=== PATIENT | male | born 1980 | race African-American/Black ===

== ENCOUNTER 2016-07-19 06:16 | Emergency (ER) | payer MEDICARE ==
[~2016-07-19] VITALS: Ht 185.4 cm; Wt 95.0 kg
[~2016-07-19 06:16] MED LIST: ERYT.5%O EACH EYE; TYLE3; Z.0.NO CURRENT MEDS
[2016-07-19 06:18] VITALS: BP 149/85; PULSE 71; RESP 16; TEMP 98; O2SAT 99
[2016-07-19] MEDS ORDERED: SODIUM CHLORIDE 0.9% FLUSH 5 ML FLUSH IVF PRN (07:15)
--- NOTE | 2016-07-19 07:18 | PD ---
HPI Chief Complaint: Abdominal Pain Time Seen by Provider: 07:10 Travel History International Travel<30 days: No Contact w/Intl Traveler<30days: No Traveled to known affect area: No History of Present Illness HPI This patient complains of abdominal pain. Location is epigastrium. Severity is mild to moderate. It is intermittent over 3 days. There is no vomiting or fever. No lower quadrant pain. Denies alcohol or drug abuse. Denies any specific medical problem. 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 No alleviating factors. PFSH Past Medical History Medical History: Denies Significant Hx Diminished Hearing: No Integumentary: Yes (PSORIASIS) Immunizations Current: Yes Tetanus Vaccination: > 5 Years Influenza Vaccination: Yes Past Surgical History Surgical History: No Previous Surgery Oral Surgery: Yes (6 DAYS AGO) Tonsillectomy: Yes (10 YRS AGO) Social History Alcohol Use: Yes (occassional) Tobacco Use: No Substance Use: No Allergies-Medications (Allergen,Severity, Reaction): Coded Allergies: Iodine (Verified Allergy, Severe, SWELLING, 07/19/16) Oily Fish (Verified Allergy, Severe, HIVES, 07/19/16) Penicillin (Verified Allergy, Unknown, Swelling, 07/19/16) Reported Meds & Prescriptions Reported Meds & Active Scripts Active Ilotycin (Erythromycin) 3.5 Gm Oint 1 Dose EACH EYE QID Reported Tylenol #3 (Acetaminophen/Codeine Phosphate) 300 Mg/30 Mg Tab No Current Meds (Miscellaneous Medication) Misc No Current Meds (Miscellaneous Medication) Misc Review of Systems General / Constitutional: No: Fever Eyes: No: Visual changes HENT: Positive: Headaches Cardiovascular: No: Chest Pain or Discomfort Respiratory: No: Shortness of Breath Gastrointestinal: Positive: Abdominal Pain Genitourinary: No: Dysuria Musculoskeletal: No: Pain Skin: No Rash Neurologic: Positive: Headache, No: Weakness Psychiatric: No: Depression Endocrine: No: Polydipsia Hematologic/Lymphatic: No: Easy Bruising Physical Exam Narrative GENERAL: Well-nourished, well-developed patient in no apparent distress. SKIN: Warm and dry. HEAD: Atraumatic. Normocephalic. EYES: Pupils equal and round. No scleral icterus. No injection or drainage. ENT: No nasal bleeding or discharge. Mucous membranes pink and moist. NECK: Trachea midline. No JVD. CARDIOVASCULAR: Regular rate and rhythm. No murmur appreciated. RESPIRATORY: No accessory muscle use. Clear to auscultation. Breath sounds equal bilaterally. GASTROINTESTINAL: Abdomen soft, non-tender, nondistended. Hepatic and splenic margins not palpable. MUSCULOSKELETAL: No obvious deformities. No clubbing. No cyanosis. No edema. NEUROLOGICAL: Awake and alert. No obvious cranial nerve deficits. Motor grossly within normal limits. Normal speech. PSYCHIATRIC: Appropriate mood and affect; insight and judgment normal. Data Data Last Documented VS Vital Signs Date Time Temp Pulse Resp B/P Pulse Ox O2 Delivery O2 Flow Rate FiO2 07/19/16 11:03 79 16 138/78 99 Room Air 07/19/16 06:18 98.0 Orders Complete Blood Count With Diff (07/19/16 07:14) Comprehensive Metabolic Panel (07/19/16 07:14) Lipase (07/19/16 07:14) Iv Access Insert/Monitor (07/19/16 07:14) Sodium Chloride 0.9% Flush (Ns Flush) (07/19/16 07:15) Labs Laboratory Tests Test 07/19/16 07:16 White Blood Count 5.2 TH/MM3 Red Blood Count 5.04 MIL/MM3 Hemoglobin 13.1 GM/DL Hematocrit 40.4 % Mean Corpuscular Volume 80.3 FL Mean Corpuscular Hemoglobin 25.9 PG Mean Corpuscular Hemoglobin 32.3 % Concent Red Cell Distribution Width 14.7 % Platelet Count 190 TH/MM3 Mean Platelet Volume 9.9 FL Neutrophils (%) (Auto) 44.0 % Lymphocytes (%) (Auto) 42.8 % Monocytes (%) (Auto) 10.9 % Eosinophils (%) (Auto) 1.8 % Basophils (%) (Auto) 0.5 % Neutrophils # (Auto) 2.3 TH/MM3 Lymphocytes # (Auto) 2.2 TH/MM3 Monocytes # (Auto) 0.6 TH/MM3 Eosinophils # (Auto) 0.1 TH/MM3 Basophils # (Auto) 0.0 TH/MM3 CBC Comment DIFF FINAL Differential Comment Sodium Level 140 MEQ/L Potassium Level 3.5 MEQ/L Chloride Level 105 MEQ/L Carbon Dioxide Level 26.9 MEQ/L Anion Gap 8 MEQ/L Blood Urea Nitrogen 12 MG/DL Creatinine 0.76 MG/DL Estimat Glomerular Filtration 139 ML/MIN Rate Random Glucose 97 MG/DL Calcium Level 8.9 MG/DL Total Bilirubin 0.3 MG/DL Aspartate Amino Transf 19 U/L (AST/SGOT) Alanine Aminotransferase 25 U/L (ALT/SGPT) Alkaline Phosphatase 59 U/L Total Protein 8.0 GM/DL Albumin 3.7 GM/DL Lipase 63 U/L MDM Medical Decision Making Medical Screen Exam Complete: Yes Emergency Medical Condition: Yes Medical Record Reviewed: Yes Differential Diagnosis Differential diagnosis includes pancreatitis, biliary colic, hepatitis, GERD, peptic ulcer disease. Narrative Course I have reviewed the patient's electronic medical record. Was last here in 2011 with conjunctivitis IV placed CBC is normal Metabolic profile is normal LFTs are normal Lipase is normal Abdomen is soft and benign and nontender. Vital signs are normal. I don't have any clinical suspicion of emergent intra-abdominal process. Stable for primary care follow-up Diagnosis Primary Impression: Abdominal pain Qualified Code: R10.84 - Generalized abdominal pain Additional Instructions: The patient was advised to follow up with their physician and return if they worsen. Med/Other Pt SpecificInfo: Other Disposition: 01 DISCHARGE HOME Condition: Stable Feliz Navarro MD Jul 19, 2016 07:18
[2016-07-19 07:41] LABS: AUTOMATED NEUTROPHIL # 2.3 TH/MM3 (1.8-7.7); BASOPHIL % 0.5 % (0.0-2.0); EOSINOPHIL # 0.1 TH/MM3 (0-0.4); EOSINOPHIL % 1.8 % (0.0-4.0); HEMATOCRIT 40.4 % (39.0-51.0); HEMO FLAGS DIFF FINAL; LYMPH % 42.8 % (9.0-44.0); LYMPHOCYTE # 2.2 TH/MM3 (1.0-4.8); MEAN CELL VOLUME 80.3 FL (80.0-100.0); MEAN CORPUSCULAR HEMOGLOBIN 25.9 PG (27.0-34.0); MEAN CORPUSCULAR HGB CONC 32.3 % (32.0-36.0); MONO % 10.9 % (0.0-8.0); PLATELET COUNT 190 TH/MM3 (150-450); RED BLOOD COUNT 5.04 MIL/MM3 (4.50-5.90); RED CELL DISTRIBUTION WIDTH 14.7 % (11.6-17.2); WHITE BLOOD COUNT 5.2 TH/MM3 (4.0-11.0)
[2016-07-19 07:58] LABS: ALKALINE PHOSPHATASE 59 U/L (45-117); TOTAL BILIRUBIN ADULT 0.3 MG/DL (0.2-1.0)
[2016-07-19 08:14] LABS: ALT (GPT) 25 U/L (12-78); ANION GAP 8 MEQ/L (5-15); AST (GOT) 19 U/L (15-37); BICARBONATE 26.9 MEQ/L (21.0-32.0); BLOOD UREA NITROGEN 12 MG/DL (7-18); CHLORIDE 105 MEQ/L (98-107); GLOMERULAR FILTRATION RATE 139 ML/MIN (>89); POTASSIUM 3.5 MEQ/L (3.5-5.1); SODIUM (NA) 140 MEQ/L (136-145)
[2016-07-19 11:03] VITALS: BP 138/78; PULSE 79; RESP 16; O2SAT 99
== END 2016-07-19 15:34 | disposition home or self-care (01) ==
LOC: NEPC 06:16
DX: R10.84 Generalized abdominal pain (principal)
CPT/HCPCS: 80053; 83690; 85025; 99284

== ENCOUNTER 2016-09-15 20:31 | Emergency (ER) | payer MEDICARE ==
[~2016-09-15] VITALS: Ht 185.4 cm; Wt 98.8 kg
[2016-09-15 21:08] VITALS: BP 141/90; PULSE 82; RESP 18; TEMP 98.3; O2SAT 99
[2016-09-15] MEDS ORDERED: KETOROLAC TROMETHAMINE 60 MG/2 ML (IM) VIAL IM ONE (21:15)
--- NOTE | 2016-09-15 21:27 | PD ---
HPI Chief Complaint: Injury Time Seen by Provider: 21:16 Travel History International Travel<30 days: No Contact w/Intl Traveler<30days: No Traveled to known affect area: No History of Present Illness HPI 36-year-old male presents to the emergency room for evaluation of right heel pain and swelling after injury at work 2 hours prior to arrival. Patient states his coworker accidentally dropped a 3 foot long 2 inch in diameter pipe on his foot. The pipe mostly hit the medial aspect of his heel which is where his pain is localized. He had immediate pain. Patient states he knows it is not broken because he can ambulate. He has not done anything or taken anything for symptoms. He reports mild paresthesias at the site of injury. Denies chronic medical conditions or daily medications. PFSH Past Medical History Diminished Hearing: No Integumentary: Yes (PSORIASIS) Immunizations Current: Yes Tetanus Vaccination: < 5 Years Influenza Vaccination: Yes ?: Not Past Surgical History Oral Surgery: Yes (6 DAYS AGO) Tonsillectomy: Yes (10 YRS AGO) Social History Alcohol Use: Yes (occassional) Tobacco Use: No Substance Use: No Allergies-Medications (Allergen,Severity, Reaction): Coded Allergies: Iodine (Verified Allergy, Severe, SWELLING, 09/15/16) Oily Fish (Verified Allergy, Severe, HIVES, 09/15/16) Penicillin (Verified Allergy, Unknown, Swelling, 09/15/16) Reported Meds & Prescriptions Reported Meds & Active Scripts Active No Active Prescriptions or Reported Medications Review of Systems Except as stated in HPI: all other systems reviewed are Neg Physical Exam Narrative GENERAL: Well-nourished, well-developed male in no acute distress. Afebrile. Ambulatory. SKIN: Focused skin assessment warm/dry. No erythema or ecchymosis. HEAD: Normocephalic. EYES: No scleral icterus. No injection or drainage. NECK: Supple, trachea midline. No JVD or lymphadenopathy. CARDIOVASCULAR: Regular rate and rhythm without murmurs, gallops, or rubs. RESPIRATORY: Breath sounds equal bilaterally. No accessory muscle use. EXTREMITY: Right heel tender to palpation on the medial aspect. Full range of motion in all joints. No obvious edema. 2+ dorsalis pedis pulse. Less than 2 second capillary refill distally. Strength 5/5 and equal in lower extremities. Data Data Last Documented VS Vital Signs Date Time Temp Pulse Resp B/P Pulse Ox O2 Delivery O2 Flow Rate FiO2 09/15/16 21:08 98.3 82 18 141/90 99 Room Air Orders Ketorolac Inj (Toradol Inj) (09/15/16 21:15) [facility] Medical Decision Making Medical Screen Exam Complete: Yes Emergency Medical Condition: Yes Medical Record Reviewed: Yes Differential Diagnosis Fracture versus contusion versus sprain versus strain Narrative Course 36-year-old male presents to the emergency room for evaluation of right heel pain after having a pole dropped and his foot earlier today. Patient has been ambulatory since the onset of symptoms. He knows that his foot is not broken because it is only mildly tender to palpation and pain only occurs with ambulation. There is no erythema, ecchymosis, edema, or obvious deformity. Right lower extremity is neurovascularly intact. Given history and physical exam, there is no indication for imaging at this time. He has not done anything for his symptoms. When ice was applied in the emergency room, he reported great improvement in symptoms. He will also be given Toradol for pain. Patient told to follow up with his primary care physician or return to the emergency room for worsening symptoms. He understands and agrees to plan. Diagnosis Primary Impression: Contusion of right heel Qualified Code: S90.31XA - Contusion of right heel, initial encounter Referrals: Primary Care Physician Patient Instructions: Foot Contusion (ED), General Instructions Additional Instructions: Rest and drink plenty of fluids. Take ibuprofen with food as directed, as needed for pain. Elevate and apply ice to the affected area for 20 minutes at a time, as needed for pain and swelling. Follow-up with a primary care physician. Return to the emergency room for worsening symptoms. Scripts No Active Prescriptions or Reported Meds Disposition: 01 DISCHARGE HOME Condition: Stable Fatou Holguin September 15, 2016 21:27
== END 2016-09-15 21:46 | disposition home or self-care (01) ==
LOC: PHEFT 20:31
DX: S90.31XA Contusion of right foot, initial encounter (principal); W20.8XXA Other cause of strike by thrown, projected or falling object, initial encounter; Y99.0 Civilian activity done for income or pay
CPT/HCPCS: 96372; 99283; J1885

== ENCOUNTER 2017-05-09 12:45 | Emergency (ER) | payer MEDICARE ==
[~2017-05-09] VITALS: Ht 185.4 cm; Wt 105.6 kg
[2017-05-09 12:47] VITALS: BP 142/66; PULSE 72; RESP 16; TEMP 98.4; O2SAT 96
--- NOTE | 2017-05-09 13:01 | PD ---
HPI Chief Complaint: Complaint Time Seen by Provider: 12:51 Travel History International Travel<30 days: No Contact w/Intl Traveler<30days: No Traveled to known affect area: No History of Present Illness HPI Patient comes in complaining of dysuria that began yesterday. Patient describes a burning stinging sensation when he voids that goes away when he stops voiding. Denies any fevers, testicular pain, abdominal pain, change in bowel, doing anything for this, radiation of pain, or new back pain. Patient reports is intermittent right-sided low back pain intermittently ongoing for a long time but is unchanged. Patient is uncertain of his partners having any symptoms. Patient also has concerns over a painless bump noted near the glans penis that began couple days ago. Denies any pain with this or previous episode like this. Denies anything making it better or worse. Patient reports he is sexually active with one person. PFSH Past Medical History Diminished Hearing: No Integumentary: Yes (PSORIASIS) Immunizations Current: Yes Past Surgical History Oral Surgery: Yes (6 DAYS AGO) Tonsillectomy: Yes (10 YRS AGO) Social History Alcohol Use: Yes (occassional) Tobacco Use: No Substance Use: No Allergies-Medications (Allergen,Severity, Reaction): Coded Allergies: fish oil (Unverified Allergy, Severe, HIVES, 05/09/17) iodine (Unverified Allergy, Severe, SWELLING, 05/09/17) potassium iodide (Unverified Allergy, Severe, SWELLING, 05/09/17) povidone-iodine (Unverified Allergy, Severe, SWELLING, 05/09/17) sodium iodide (Unverified Allergy, Severe, SWELLING, 05/09/17) sodium iodide (Unverified Allergy, Severe, SWELLING, 05/09/17) penicillin G (Unverified Allergy, Unknown, Swelling, 05/09/17) Reported Meds & Prescriptions Reported Meds & Active Scripts Active No Active Prescriptions or Reported Medications Review of Systems Except as stated in HPI: all other systems reviewed are Neg Physical Exam Narrative GENERAL: Well-developed, overly nourished, in no acute distress, and non-ill appearing. SKIN: Focused skin assessment warm and dry. Small pimple-appearing lesion noted near the base of the glans penis on the superior aspect. Does not appear consistent with herpes or syphilis. No discharge noted. Exam was performed with presence of air liaison and special staff Shruti at all times. HEAD: Atraumatic. Normocephalic. EYES: Pupils equal and round. EOMI. No scleral icterus. No injection or drainage. ENT: No nasal bleeding or discharge. Mucous membranes pink and moist. NECK: Trachea midline. Supple. No nuclear rigidity. RESPIRATORY: No accessory muscle use. No respiratory distress. GASTROINTESTINAL: Abdomen soft, non-tender, nondistended, and no guarding. Hepatic and splenic margins not palpable. No pulsatile mass. MUSCULOSKELETAL: No obvious deformities. No clubbing. No cyanosis. No edema. Full range of motion. NEUROLOGICAL: Awake and alert. No obvious cranial nerve deficits. Motor grossly within normal limits. Normal speech. PSYCHIATRIC: Appropriate mood and affect; insight and judgment normal. Data Data Last Documented VS Vital Signs Date Time Temp Pulse Resp B/P (MAP) Pulse Ox O2 Delivery O2 Flow Rate FiO2 05/09/17 12:47 98.4 72 16 142/66 (91) 96 Orders Orders Urinalysis - C+S If Indicated (05/09/17 12:56) Gc And Chlamydia Pcr (05/09/17 12:56) Azithromycin Powd Pack (Zithromax Powd P (05/09/17 13:45) Metronidazole (Flagyl) (05/09/17 13:45) Ceftriaxone Inj (Rocephin Inj) (05/09/17 13:45) Lidocaine Pf 1% Inj (Xylocaine-Mpf 1% In (05/09/17 13:45) Ed Discharge Order (05/09/17 13:50) Labs Laboratory Tests Test 05/09/17 13:00 Urine Collection Type CLEAN CATCH Urine Color YELLOW Urine Turbidity CLEAR Urine pH 8.5 Urine Specific [place] 1.024 Urine Protein NEG mg/dL Urine Glucose (UA) NEG mg/dL Urine Ketones NEG mg/dL Urine Occult Blood NEG Urine Nitrite NEG Urine Bilirubin NEG Urine Leukocyte Esterase NEG Urine RBC 0-3 /hpf Urine Squamous Epithelial Cells 0-5 /hpf Microscopic Urinalysis Comment CULT NOT INDICATED Urine Collection Time 13:00 [facility] Medical Decision Making Medical Screen Exam Complete: Yes Emergency Medical Condition: Yes Differential Diagnosis UTI, dysuria, prostatitis, STD, herpes, rash, syphilis Narrative Course Patient in no obvious distress upon re-evaluation. All pertinent laboratory result(s) discussed with patient with exception of the GC chlamydia is currently pending. Patient is just wanting to be treated versus waiting for the results. Patient reports his allergy to penicillin is a makes him nauseous. Any questions/concerns in reference to patient diagnosis/condition discussed and clarified prior to patient's discharge. Reinforced sheer importance of close follow up with patient's primary physician or primary care clinic and/or health Department for further testing and reevaluation of the painless bump. Instructed patient to return to ED immediately, if symptoms return/worsen. Patient showed understanding of above instructions. Further instructions and recommendations were detailed in discharge paperwork. Patient ambulated without difficulty out of ED at discharge. Diagnosis Primary Impression: Dysuria Additional Impression: Rash Referrals: [facility]. Patient Instructions: Acute Rash (ED), Dysuria (ED), General Instructions, Safe Sex (ED), Sexually Transmitted Diseases (DC) Additional Instructions: Follow-up with your primary care physician and/or health Department for additional STD testing. Notify all sexual partners have them tested and treated. Do not have intercourse until all sexual partners tested and treated. Practice safe sex to prevent further STDs and/or unwanted pregnancies. If you would like a copy of your gonorrhea and chlamydia results bring a photo ID to medical records in 24-48 hours to get a copy. Return to the emergency department if symptoms get worse. Scripts No Active Prescriptions or Reported Meds Disposition: 01 DISCHARGE HOME Condition: Kiet Tijerina May 09, 2017 13:01
[2017-05-09 13:07] LABS: BILIRUBIN, URINE NEG (NEG); BLOOD, URINE NEG (NEG); GLUCOSE,URINE NEG (NEG); KETONE, URINE NEG (NEG); NITRITE,URINE NEG (NEG); PH, URINE 8.5 (5.0-8.5); URINE LEUKOCYTE ESTERASE NEG (NEG)
[2017-05-09 13:27] LABS: RBC, URINE 0-3 /hpf (0-3); SQUAMOUS EPITHELIAL CELL URINE 0-5 /hpf (0-5); URINE COLOR YELLOW (YELLW/STRAW)
[2017-05-09] MEDS ORDERED: AZITHROMYCIN PWD FOR SUSP 1 GM PACKET PO ONE (13:45)
[2017-05-09] MEDS ORDERED: metroNIDAZOLE 500 MG TAB PO ONE (13:45)
[2017-05-09] MEDS ORDERED: LIDOCAINE HCL 1% PF 30 ML VIAL XX ONE (13:45)
== END 2017-05-09 14:32 | disposition home or self-care (01) ==
LOC: PHEFT 12:45
DX: R30.0 Dysuria (principal); R21 Rash and other nonspecific skin eruption; M54.5 Low back pain; Z87.2 Personal history of diseases of the skin and subcutaneous tissue
CPT/HCPCS: 81001; 87491; 87591; 96372; 99284; J0696

== ENCOUNTER 2017-06-21 11:31 | Emergency (ER) | payer MEDICARE ==
[2017-06-21 11:33] VITALS: BP 133/82; PULSE 74; RESP 14; TEMP 98.2; O2SAT 99
[2017-06-21] MEDS ORDERED: PRED20 PO (12:59)
[2017-06-21] MEDS ORDERED: predniSONE 20 MG TAB PO ONE (13:00)
[2017-06-21] MEDS ORDERED: diphenhydrAMINE HCL 50 MG CAP PO ONE (13:00)
--- NOTE | 2017-06-21 13:05 | PD ---
HPI Chief Complaint: Skin Problem Time Seen by Provider: 12:50 Travel History International Travel<30 days: No Contact w/Intl Traveler<30days: No Traveled to known affect area: No History of Present Illness HPI 37-year-old male with history of psoriasis presents for evaluation of psoriasis. He has suffered from it for most of his life. Over the past few days he has had increased itching to the forearms, elbows, neck, which prompted evaluation. He is not currently using any medication for symptom relief. He reports it is an appointment tomorrow with a heavy threader but he did not want to wait until then to begin treatment. He reports that he has been scratching at the psoriasis secondary to the itching. He has no other complaints at this time. [facility] Past Medical History Diminished Hearing: No Integumentary: Yes (PSORIASIS) Immunizations Current: Yes Past Surgical History Oral Surgery: Yes (6 DAYS AGO) Tonsillectomy: Yes (10 YRS AGO) Social History Alcohol Use: Yes (occassional) Tobacco Use: Yes ("occassional cigarettes and cigars") Substance Use: No Allergies-Medications (Allergen,Severity, Reaction): Coded Allergies: fish oil (Unverified Allergy, Severe, HIVES, 06/21/17) iodine (Unverified Allergy, Severe, SWELLING, 06/21/17) potassium iodide (Unverified Allergy, Severe, SWELLING, 06/21/17) povidone-iodine (Unverified Allergy, Severe, SWELLING, 06/21/17) sodium iodide (Unverified Allergy, Severe, SWELLING, 06/21/17) sodium iodide (Unverified Allergy, Severe, SWELLING, 06/21/17) penicillin G (Unverified Allergy, Unknown, Swelling, 06/21/17) Reported Meds & Prescriptions Reported Meds & Active Scripts Active Prednisone 20 Mg Tab 20 Mg PO BID 5 Days Review of Systems General / Constitutional: No: Fever, Chills Skin: Positive Rash, Positive Itching Physical Exam Narrative GENERAL: Well developed well-nourished male in no acute distress SKIN: Warm and dry. Hypertrophic skin noted to the neck, forearms with dry scaly skin. There are some areas of excoriation. There is no impetigo. There is no erythema or induration. HEAD: Atraumatic. Normocephalic. EYES: Pupils equal and round. No scleral icterus. No injection or drainage. ENT: No nasal bleeding or discharge. Mucous membranes pink and moist. NECK: Trachea midline. No JVD. CARDIOVASCULAR: Regular rate and rhythm. No murmur appreciated. RESPIRATORY: No accessory muscle use. Clear to auscultation. Breath sounds equal bilaterally. Data Data Last Documented VS Vital Signs Date Time Temp Pulse Resp B/P (MAP) Pulse Ox O2 Delivery O2 Flow Rate FiO2 06/21/17 11:33 98.2 74 14 133/82 (99) 99 Orders Orders Ed Discharge Order (06/21/17 13:00) Diphenhydramine (Benadryl) (06/21/17 13:00) Prednisone (Deltasone) (06/21/17 13:00) MDM Medical Decision Making Medical Screen Exam Complete: Yes Emergency Medical Condition: Yes Medical Record Reviewed: Yes Differential Diagnosis Psoriasis, atopic dermatitis, impetigo Narrative Course The patient will be given Benadryl and prednisone here and discharged with a prescription for prednisone. Recommended [id number] Benadryl for itching and follow-up with dermatology tomorrow as scheduled. Diagnosis Primary Impression: Psoriasis Departure Forms: Tests/Procedures, Work Release Enter return to work date: Jun 23, 2017 Additional Instructions: Medication as prescribed. Benadryl every 6 hours for itching[address] not drive or drink alcohol when taking Benadryl. Follow-up with heavy threader tomorrow as scheduled. Return for any emergent medical conditions. Med/Other Pt SpecificInfo: Prescription(s) given Scripts Prednisone (Prednisone) 20 Mg Tab 20 MG PO BID for 5 Days, #10 TAB 0 Refills Prov: Feliz Navarro MD 06/21/17 Disposition: DISCHARGE HOME Condition: Stable Chuy Lucas Jun 21, 2017 13:05
== END 2017-06-21 13:16 | disposition home or self-care (01) ==
LOC: NEPK 11:31
DX: L40.9 Psoriasis, unspecified (principal); Z88.0 Allergy status to penicillin; Z88.8 Allergy status to other drugs, medicaments and biological substances
CPT/HCPCS: 99283; J7512; Q0163